=== PATIENT | female | born 2005 | race Caucasian/White ===

== ENCOUNTER 2024-02-24 12:53 | Outpatient (CLI) | payer BC, OTHER | END 2024-02-24 23:59 | disposition home or self-care (01) | LOC: MRI 12:53 | PROVIDERS: ATTEND Pediatrics Sports Medicine | DX: M71.22 Synovial cyst of popliteal space [Baker], left knee (principal); M25.462 Effusion, left knee; M25.562 Pain in left knee; M25.362 Other instability, left knee | CPT/HCPCS: 73721 ==